=== PATIENT | female | born 1985 | race Caucasian/White ===

== ENCOUNTER 2020-06-28 21:48 | Emergency (ER) | payer SELFPAY ==
[2020-06-29] MEDS ORDERED: Acetaminophen 500 MG TAB ONE ×2 (00:44→00:48)
[2020-06-29] MEDS ORDERED: Clindamycin 150 MG CAP ONE (00:44)
[2020-06-29] MEDS ORDERED: Ibuprofen 200 MG TAB ONE ×2 (00:44→00:48)
== END 2020-06-29 00:59 | disposition home or self-care (01) ==
LOC: CSHERS 21:48
DX: K02.9 Dental caries, unspecified (principal)
CPT/HCPCS: 99282

== ENCOUNTER 2022-01-22 11:51 | Emergency (ER) | payer MEDICAID | END 2022-01-22 13:27 | disposition left against medical advice (07) | LOC: CSHERS 11:51 | DX: Z53.21 Procedure and treatment not carried out due to patient leaving prior to being seen by health care provider (principal) ==